=== PATIENT | male | born 1935 | race Caucasian/White ===

== ENCOUNTER → 2017-04-07 | Outpatient (CLI) | payer OTHER, MEDICARE | LOC: MMPC 11:11 | DX: R49.0 Dysphonia (principal); I10 Essential (primary) hypertension; N40.0 Benign prostatic hyperplasia without lower urinary tract symptoms; I48.91 Unspecified atrial fibrillation; E66.9 Obesity, unspecified; G20 Parkinson's disease; G47.33 Obstructive sleep apnea (adult) (pediatric) | CPT/HCPCS: 99213; G0463 ==